=== PATIENT | female | born 1955 | race African-American/Black ===

== ENCOUNTER 2019-01-10 21:37 | Inpatient (IN) | payer MEDICAID ==
[~2019-01-10] VITALS: Ht 162.6 cm; Wt 61.2 kg
[2019-01-10] MEDS ORDERED: NITROGLYCERIN OINT 1GM/INCH UDPKT TD ONE (23:30)
[2019-01-10] MEDS ORDERED: ASPIRIN 81MG TABLET PO ONE (23:30)
[2019-01-10 23:41] LABS: BASOPHILS % 0.5 % (0.0-2.0); CHLORIDE 106 mEq/L (98-107); EOSINOPHILS % 2.4 % (0.0-5.0); HEMATOCRIT. 28.9 % (36.0-48.0); HEMOGLOBIN. 9.4 g/dL (12.0-16.0); LYMPHOCYTES % 26.2 % (20.0-50.0); MEAN CORPUSCULAR HEMOGLOBIN 23.8 pg (28.0-32.0); MEAN CORPUSCULAR VOLUME 72.9 fL (81.0-99.0); MEAN PLATELET VOLUME 7.6 fl (7.4-10.4); MONOCYTES % 13.7 % (2.0-8.0); NEUTROPHILS % 57.2 % (40.0-76.0); PLATELET 266 x1000/uL (130-400); RED BLOOD CELL COUNT 3.97 mill/uL (4.2-5.4); RED CELL DISTRIBUTION WIDTH 15.9 % (11.6-14.6)
[2019-01-11] MEDS ORDERED: IPRATROPIUM/ALBUTEROL 0.5-3(2.5)MG/3ML NEB INH PRN
[2019-01-11] MEDS ORDERED: LORAZEPAM 2MG/ML CPJ IV PRN
[2019-01-11] MEDS ORDERED: CLONIDINE 0.1MG TABLET PO PRN
[2019-01-11] MEDS ORDERED: ACETAMINOPHEN 325MG TABLET PO PRN
[2019-01-11] MEDS ORDERED: GUAIFENESIN 200MG/10ML SUGAR FREE UDC PO PRN
[2019-01-11] MEDS ORDERED: DIPHENHYDRAMINE 50MG/ML VIAL IV PRN
[2019-01-11] MEDS ORDERED: DOCUSATE SODIUM 100MG CAPSULE PO PRN
[2019-01-11] MEDS ORDERED: NA PHOS,M-B/NA PHOS,DI-BA ENEMA 118ML PR PRN
[2019-01-11] MEDS ORDERED: MAGNESIUM/ALUMINUM HYDROXIDE/SIMETHICONE 30ML UDC PO PRN
[2019-01-11] MEDS ORDERED: ONDANSETRON HCL 4MG/2ML INJ IV PRN
[2019-01-11] MEDS ORDERED: HYDRALAZINE 20MG/ML VIAL IV PRN
[2019-01-11] MEDS ORDERED: HYDROCODONE/ACETAMINOPHEN 10/325MG TABLET PO PRN
[2019-01-11 04:28] LABS: CHLORIDE 109 mEq/L (98-107); HEMATOCRIT. 27.4 % (36.0-48.0); HEMOGLOBIN. 8.9 g/dL (12.0-16.0); MEAN CORPUSCULAR HEMOGLOBIN 23.5 pg (28.0-32.0); MEAN CORPUSCULAR VOLUME 72.3 fL (81.0-99.0); MEAN PLATELET VOLUME 7.4 fl (7.4-10.4); PLATELET 257 x1000/uL (130-400); RED CELL DISTRIBUTION WIDTH 15.8 % (11.6-14.6)
[2019-01-11 04:37] LABS: CREATINE KINASE MB FRACTION < 1.0 ng/mL (0.5-3.6); LDL CHOLESTEROL 104 mg/dL (5-100)
[2019-01-11 04:38] LABS: CREATINE KINASE 55 IU/L (26-192); HDL CHOLESTEROL 55 mg/dL (40-59); T4 FREE 0.82 ng/dL (0.76-1.46)
[2019-01-11 06:40] LABS: PLATELET ESTIMATE NORMAL
[2019-01-11 11:00] VITALS: BP 149/89
[2019-01-11] MEDS: AMLODIPINE 2.5MG TABLET PO SCH ×2 (13:38→21:22)
[2019-01-11] MEDS: ASPIRIN 81MG EC TABLET PO SCH (13:38)
[2019-01-11] MEDS: ENOXAPARIN 40MG/0.4ML SYR SUBCUT SCH (13:38)
[2019-01-11] MEDS: SODIUM CHLORIDE 0.9% INJ 3ML FLUSH IVF SCH ×2 (13:39→22:00)
[2019-01-11] MEDS: HYDROMORPHONE HCL/PF 2MG/ML CPJ IV PRN ×2 (13:39→21:22)
[2019-01-11 15:48] VITALS: BP 149/89
[2019-01-11 15:54] LABS: CREATINE KINASE 65 IU/L (26-192)
[2019-01-11 15:55] LABS: CREATINE KINASE MB FRACTION < 1.0 ng/mL (0.5-3.6)
[2019-01-11 16:12] LABS: HEPATITIS B SURFACE ANTIGEN NEGATIVE
[2019-01-11 16:21] VITALS: BP 136/74
[2019-01-11 16:42] LABS: HEPATITIS A AB IGM NEGATIVE (NEGATIVE)
[2019-01-11] MEDS ORDERED: TLXL5 MT (16:46)
[2019-01-11 19:11] LABS: *AMPHETAMINES SCREEN URINE NEGATIVE (NEGATIVE)
[2019-01-11 19:12] LABS: *BARBITURATES SCREEN URINE NEGATIVE (NEGATIVE); *BENZODIAZEPINES SCREEN URINE NEGATIVE (NEGATIVE); *COCAINE SCREEN URINE NEGATIVE (NEGATIVE); METHADONE URINE SCREEN NEGATIVE (NEGATIVE); OPIATES URINE SCREEN PRESUMTIVE POSITIVE (NEGATIVE); PHENCYCLIDINE URINE SCREEN NEGATIVE (NEGATIVE)
[2019-01-11 19:13] LABS: CANNABINOID URINE SCREEN NEGATIVE (NEGATIVE)
[2019-01-11 20:00] VITALS: BP 128/76
[2019-01-12] VITALS: BP 117/71
[2019-01-12 04:00] VITALS: BP 111/61
[2019-01-12] MEDS: SODIUM CHLORIDE 0.9% INJ 3ML FLUSH IVF SCH ×2 (06:10→16:22)
[2019-01-12 08:00] VITALS: BP 127/74
[2019-01-12] MEDS: ENOXAPARIN 40MG/0.4ML SYR SUBCUT SCH (08:51)
[2019-01-12] MEDS: ASPIRIN 81MG EC TABLET PO SCH (08:51)
[2019-01-12] MEDS: AMLODIPINE 2.5MG TABLET PO SCH (08:55)
[2019-01-12 09:17] LABS: BASOPHILS % 0.5 % (0.0-2.0); EOSINOPHILS % 1.9 % (0.0-5.0); HEMATOCRIT. 28.8 % (36.0-48.0); HEMOGLOBIN. 9.3 g/dL (12.0-16.0); LYMPHOCYTES % 24.4 % (20.0-50.0); MEAN CORPUSCULAR HEMOGLOBIN 23.4 pg (28.0-32.0); MEAN PLATELET VOLUME 7.4 fl (7.4-10.4); MONOCYTES % 11.5 % (2.0-8.0); NEUTROPHILS % 61.7 % (40.0-76.0); PLATELET 288 x1000/uL (130-400); RED CELL DISTRIBUTION WIDTH 16.1 % (11.6-14.6)
[2019-01-12 09:26] LABS: CHLORIDE 104 mEq/L (98-107)
[2019-01-12] MEDS ORDERED: REGADENOSON 0.4 MG/5 ML IV NR (09:30)
[2019-01-12 09:34] LABS: CREATINE KINASE 52 IU/L (26-192)
[2019-01-12 09:38] LABS: CREATINE KINASE MB FRACTION < 1.0 ng/mL (0.5-3.6)
[2019-01-12 12:00] VITALS: BP 121/77
[2019-01-12] MEDS ORDERED: REGADENOSON 0.4 MG/5 ML IV ONE (12:21)
[2019-01-12 14:32] VITALS: BP 121/77
[2019-01-12] MEDS ORDERED: PNEUMOCOCCAL 23-VAL P-SAC VAC 0.5 ML IM ONE (15:00)
== END 2019-01-12 17:03 | disposition home or self-care (01) | DRG 203 ==
LOC: ER 21:37 → 8WST 23:32 → EDBEDREQTM 23:35 → EDBEDREQ 23:35 → CANRESERV 01-11 08:40 → ENRESERV 01-11 08:40
PROVIDERS: ADMIT Internal Medicine; ATTEND Internal Medicine
DX: R07.9 Chest pain, unspecified (principal); G62.9 Polyneuropathy, unspecified; D64.9 Anemia, unspecified; D72.819 Decreased white blood cell count, unspecified; R74.0 Nonspecific elevation of levels of transaminase and lactic acid dehydrogenase [LDH]; G89.29 Other chronic pain; M54.5 Low back pain; I10 Essential (primary) hypertension
CPT/HCPCS: 36415; 71045; 78452; 80061; 80305; 82550; 82553; 83735; 83880; 84439; 84443; 84484; 85379; 86705; 86709; 86803; 87340; 90732; 93005; 93017; 93306; 93970; 99285; A9500; J1170; J1650; J2785